=== PATIENT | male | born 1955 | race Caucasian/White ===

== ENCOUNTER → 2020-07-04 | Outpatient (CLI) | payer BC, OTHER | END | disposition home or self-care (01) | LOC: CFH 12:22 | PROVIDERS: ATTEND Student in an Organized Health Care Education/Training Program | DX: Z12.2 Encounter for screening for malignant neoplasm of respiratory organs (principal); R91.8 Other nonspecific abnormal finding of lung field; Z87.891 Personal history of nicotine dependence | CPT/HCPCS: 71271 ==

== ENCOUNTER 2020-07-27 06:55 | Day surgery (SDC) | payer BC ==
[~2020-07-27] VITALS: Ht 188 cm; Wt 96.0 kg
[2020-07-27 07:30] VITALS: BP 149/96
[2020-07-27] MEDS ORDERED: SODIUM CHLORIDE 0.9% 1,000 ML IV SCH (07:30)
[2020-07-27] MEDS ORDERED: LIDOCAINE 1%, 10ML ONE (08:57)
== END 2020-07-27 10:40 | disposition home or self-care (01) ==
LOC: OUT 06:55
PROVIDERS: ATTEND Internal Medicine
DX: J98.59 Other diseases of mediastinum, not elsewhere classified (principal); R91.1 Solitary pulmonary nodule; I10 Essential (primary) hypertension; Z79.899 Other long term (current) drug therapy; Z87.891 Personal history of nicotine dependence; Z88.2 Allergy status to sulfonamides; Z88.5 Allergy status to narcotic agent
CPT/HCPCS: 32408; 99156; 99157; J2250; J3010; 77012; J2310

== ENCOUNTER → 2020-08-01 | Outpatient (CLI) | payer BC | END | disposition home or self-care (01) | LOC: PETCFH 09:36 | PROVIDERS: ATTEND Internal Medicine | DX: R91.8 Other nonspecific abnormal finding of lung field (principal); J98.59 Other diseases of mediastinum, not elsewhere classified | CPT/HCPCS: 78815; A9552 ==